=== PATIENT | female | born 1935 | race Two or more races ===

== ENCOUNTER 2016-12-08 13:57 | Inpatient (IN) | payer MEDICARE, MEDICAID ==
[~2016-12-08] VITALS: Ht 165.1 cm; Wt 62.3 kg
[2016-12-08 14:35] LABS: Basophils # (auto) 0 uL; Basophils % (auto) 0.4 % (0.0-2.0); CONDITION Y; Eosinophils # (auto) 0 uL; Hematocrit 35.9 % (36.0-46.0); Lymphocytes # (auto) 1.7 uL; Lymphocytes % (auto) 25.2 % (10.0-50.0); Mean Corpuscular Hemoglobin 31.5 pg (28.0-32.0); Mean Corpuscular Hgb Conc. 33.5 g/dL (32.0-36.0); Mean Platelet Volume 8.9 fL (7.4-10.4); Monocytes # (auto) 0.5 uL; Neutrophils # (auto) 4.5 uL; Neutrophils % (auto) 67.4 % (37.0-80.0); Platelet Count (auto) 238 10^3/uL (140-450); Red Cell Distribution Width 15.5 % (11.6-16.0); White Blood Cell 6.7 10^3/uL (4.4-10.8)
[2016-12-08 14:51] LABS: Albumin 3.3 g/dL (3.4-5.0); BUN/Creatinine Ratio 21.2; Bilirubin, Total 0.8 mg/dL (0.2-1.0); Calcium 8.6 mg/dL (8.5-10.1); Potassium 4.6 mmol/L (3.5-5.1); Total Protein 6.5 g/dL (6.4-8.2)
[2016-12-08] MEDS ORDERED: SODIUM CHLORIDE 0.9% 1,000 ML IVB ONE (15:48)
[2016-12-08 16:10] LABS: INR 1.01 (0.9-1.15); Partial Thromboplastin Time 20.7 sec (22.64-33.71)
[2016-12-08] MEDS ORDERED: SODIUM CHLORIDE 0.9% 1,000 ML IV SCH (16:10)
[2016-12-08 16:12] LABS: Magnesium 2.2 mg/dL (1.6-2.6)
[2016-12-08 16:13] LABS: Urine Bilirubin Negative (Negative); Urine Blood Negative /uL (Negative); Urine Color Yellow (Yellow); Urine Glucose Normal (Normal); Urine Ketone Negative (Negative); Urine Nitrite Negative (Negative); Urine RBC <1 /hpf (0 - 4); Urine Urobilinogen Normal (Negative); Urine pH 5.5 (5.0-8.0)
[2016-12-08] MEDS ORDERED: MORPHINE SULF INJ 2 MG/ML SYRINGE 1ML IV PRN (16:15)
[2016-12-08] MEDS ORDERED: DEXTROSE (50%) 50ML SYRG IV PRN (16:15)
[2016-12-08] MEDS ORDERED: ACETAMINOPHEN 325 MG TAB PO PRN (16:15)
[2016-12-08] MEDS ORDERED: NITROGLYCERIN 0.4 MG SL TAB SL PRN (16:15)
[2016-12-08] MEDS: ASPirin 325 MG TAB PO SCH (16:42)
[2016-12-08] MEDS: ACCU-CHEK COMFORT CURVE STRIP VI SCH ×2 (16:55→22:11)
[2016-12-08] MEDS: InsuLIN REG 1unit/0.01ml Soln (100units/ml) SC SCH ×2 (16:56→22:00)
[2016-12-08] MEDS ORDERED: CARV3.1240 PO (17:40)
[2016-12-08] MEDS ORDERED: METF-372 PO (17:40)
[2016-12-08] MEDS ORDERED: FURO40TA4 PO (17:40)
[2016-12-08] MEDS ORDERED: ALPR0.254 PO (17:40)
[2016-12-08] MEDS ORDERED: TRAM50TA2 PO (17:40)
[2016-12-08] MEDS ORDERED: CLOP75TA41 PO (17:40)
[2016-12-08] MEDS ORDERED: SACU1TAB PO (17:40)
[2016-12-08] MEDS ORDERED: POTA10TA34 PO (17:40)
[2016-12-08] MEDS ORDERED: ATOR40TA52 PO (17:40)
[2016-12-08] MEDS ORDERED: ACETTAB85 PO (17:40)
[2016-12-08] MEDS ORDERED: CHOL20007 OR (17:40)
[2016-12-08 18:44] LABS: Lactic Acid w/Reflex 3.6 mmol/L (0.4-2.0)
[2016-12-08 19:14] LABS: REFLEX LACTIC ACID YES OR NO YES
[2016-12-08] MEDS ORDERED: POTASSIUM CHL 20 Meq TABLET PO ONE (20:15)
[2016-12-08] MEDS ORDERED: FUROSEMIDE 40 MG/4 ML VIAL IV ONE (20:15)
[2016-12-08 21:30] VITALS: BP 105/57
[2016-12-08] MEDS: ALPRAZolam 0.25 MG TAB PO SCH (22:11)
[2016-12-08] MEDS: ENOXAPARIN SOD 80 MG/0.8ML SYRINGE SC SCH (22:12)
[2016-12-09 05:00] VITALS: BP 111/65
[2016-12-09 06:03] LABS: Basophils # (auto) 0 uL; Basophils % (auto) 0.2 % (0.0-2.0); CONDITION Y; Eosinophils # (auto) 0 uL; Hematocrit 37.6 % (36.0-46.0); Hemoglobin 12.6 g/dL (12.2-16.2); Lymphocytes # (auto) 1.4 uL; Lymphocytes % (auto) 24.8 % (10.0-50.0); Mean Corpuscular Hemoglobin 31.7 pg (28.0-32.0); Mean Corpuscular Hgb Conc. 33.4 g/dL (32.0-36.0); Mean Corpuscular Volume 94.7 fL (80.0-100.0); Mean Platelet Volume 9.1 fL (7.4-10.4); Monocytes # (auto) 0.4 uL; Monocytes % (auto) 7.2 % (0.0-12.0); Neutrophils # (auto) 3.9 uL; Neutrophils % (auto) 67.8 % (37.0-80.0); Platelet Count (auto) 237 10^3/uL (140-450); Red Cell Distribution Width 15.4 % (11.6-16.0); White Blood Cell 5.7 10^3/uL (4.4-10.8)
[2016-12-09] MEDS: InsuLIN REG 1unit/0.01ml Soln (100units/ml) SC SCH ×4 (06:29→21:53)
[2016-12-09] MEDS: ACCU-CHEK COMFORT CURVE STRIP VI SCH ×4 (06:29→21:53)
[2016-12-09 06:40] LABS: Albumin 3.3 g/dL (3.4-5.0); BUN/Creatinine Ratio 24.6; Bilirubin, Total 0.9 mg/dL (0.2-1.0); Calcium 8.7 mg/dL (8.5-10.1); Potassium 4.1 mmol/L (3.5-5.1); Total Protein 6.6 g/dL (6.4-8.2)
[2016-12-09 09:00] VITALS: BP 103/61
[2016-12-09] MEDS: CARVEDILOL 3.125 MG TAB PO SCH ×2 (10:00→21:52)
[2016-12-09] MEDS ORDERED: CLOPIDOGREL BISULFATE 75 MG TAB PO SCH (10:00)
[2016-12-09] MEDS: ENOXAPARIN SOD 80 MG/0.8ML SYRINGE SC SCH (10:48)
[2016-12-09] MEDS: ASPirin 325 MG TAB PO SCH (10:48)
[2016-12-09] MEDS ORDERED: ADENOSINE 56 MG in GIVE UN-DILUTED 0 ML IV ONE (13:00)
[2016-12-09] MEDS ORDERED: ADENOSINE 49 MG in GIVE UN-DILUTED 0 ML IV ONE (13:30)
[2016-12-09 17:24] VITALS: BP 122/95
[2016-12-09] MEDS: ALPRAZolam 0.25 MG TAB PO SCH (21:53)
[2016-12-09] MEDS ORDERED: ATORVASTATIN 20 MG TAB PO SCH (22:00)
[2016-12-09 22:14] VITALS: BP 120/67
[2016-12-10 05:12] VITALS: BP 94/56
[2016-12-10] MEDS: ACCU-CHEK COMFORT CURVE STRIP VI SCH ×2 (06:20→11:30)
[2016-12-10] MEDS: InsuLIN REG 1unit/0.01ml Soln (100units/ml) SC SCH ×2 (06:20→11:30)
[2016-12-10 08:55] VITALS: BP 113/64
[2016-12-10 09:00] VITALS: BP 113/64
[2016-12-10] MEDS: ASPirin 325 MG TAB PO SCH (10:16)
[2016-12-10] MEDS: CARVEDILOL 3.125 MG TAB PO SCH (10:18)
[2016-12-10 13:00] VITALS: BP 96/57
[2016-12-10 13:48] VITALS: BP 96/57
== END 2016-12-10 15:45 | disposition home or self-care (01) | DRG 280 ==
LOC: EDBD 13:57 → ER 13:57 → TELE 13:58 → TELE-E-ADS 17:24 → TELE-CENTR 18:55
PROVIDERS: ADMIT Internal Medicine; ATTEND Internal Medicine
DX: I13.0 Hypertensive heart and chronic kidney disease with heart failure and stage 1 through stage 4 chronic kidney disease, or unspecified chronic kidney disease (principal); G92 Toxic encephalopathy; I21.4 Non-ST elevation (NSTEMI) myocardial infarction; E43 Unspecified severe protein-calorie malnutrition; I50.23 Acute on chronic systolic (congestive) heart failure; I42.9 Cardiomyopathy, unspecified; N18.3 Chronic kidney disease, stage 3 (moderate); G89.29 Other chronic pain; F32.9 Major depressive disorder, single episode, unspecified; M54.5 Low back pain; E11.22 Type 2 diabetes mellitus with diabetic chronic kidney disease; D64.9 Anemia, unspecified; F41.9 Anxiety disorder, unspecified; I25.10 Atherosclerotic heart disease of native coronary artery without angina pectoris; E03.9 Hypothyroidism, unspecified; E78.00 Pure hypercholesterolemia, unspecified; E11.21 Type 2 diabetes mellitus with diabetic nephropathy; T42.4X5A Adverse effect of benzodiazepines, initial encounter; Y92.89 Other specified places as the place of occurrence of the external cause; Z79.02 Long term (current) use of antithrombotics/antiplatelets; Z79.82 Long term (current) use of aspirin; Z88.0 Allergy status to penicillin; Z68.22 Body mass index [BMI] 22.0-22.9, adult
CPT/HCPCS: 36415; 51702; 70450; 71010; 78452; 80053; 80320; 81001; 82962; 83605; 83735; 84484; 85025; 85610; 85730; 87040; 87086; 93005; 93017; 93306; 94761; 96361; 96365; J0153; J1815

== ENCOUNTER 2017-05-04 21:35 | Inpatient (IN) | payer MEDICARE, MEDICAID ==
[~2017-05-04] VITALS: Ht 165.1 cm; Wt 68.5 kg
[~2017-05-04 21:35] MED LIST: ACETTAB85 PO; ATOR40TA52 PO; CHOL20007 OR; CLOP75TA41 PO; FURO40TA4 PO; METF-372 PO; POTA10TA34 PO; SACU1TAB PO
[2017-05-04 22:48] LABS: Basophils # (auto) 0 uL; Basophils % (auto) 0.5 % (0.0-2.0); Eosinophils # (auto) 0 uL; Hematocrit 33.7 % (36.0-46.0); Hemoglobin 11.4 g/dL (12.2-16.2); Lymphocytes # (auto) 1.2 uL; Lymphocytes % (auto) 14.8 % (10.0-50.0); Mean Corpuscular Hemoglobin 32.5 pg (28.0-32.0); Mean Corpuscular Volume 95.6 fL (80.0-100.0); Monocytes # (auto) 0.5 uL; Monocytes % (auto) 5.9 % (0.0-12.0); Neutrophils # (auto) 6.3 uL; Neutrophils % (auto) 78.8 % (37.0-80.0); Platelet Count (auto) 166 10^3/uL (140-450); Red Blood Cells 3.52 10^6/uL (4.0-5.20); Red Cell Distribution Width 13.3 % (11.8-14.3)
[2017-05-04 23:12] LABS: Albumin 3.2 g/dL (3.4-5.0); BUN/Creatinine Ratio 23.6; Calcium 8.6 mg/dL (8.5-10.1); Potassium 4.1 mmol/L (3.5-5.1)
[2017-05-04 23:15] LABS: Bilirubin, Total 0.7 mg/dL (0.2-1.0); Total Protein 6.6 g/dL (6.4-8.2)
[2017-05-05] MEDS ORDERED: ASPirin 325 MG TAB PO ONE (02:00)
[2017-05-05] MEDS ORDERED: MORPHINE SULFATE 10 MG/ML INJ 1ML SDV IV ONE (02:00)
[2017-05-05 03:03] LABS: INR 0.97 (0.9-1.15); Partial Thromboplastin Time 23.2 sec (22.64-33.71); Prothrombin Time 10.6 sec (9.37-12.3)
[2017-05-05] MEDS ORDERED: IOHEXOL 350 MG/ML 100ML IJ ONE (06:34)
[2017-05-05] MEDS ORDERED: SODIUM CHLORIDE 0.9% 1,000 ML IV SCH (06:36)
[2017-05-05] MEDS ORDERED: TEMAZEPAM 15 MG CAP PO PRN (06:45)
[2017-05-05] MEDS ORDERED: ONDANSETRON HCL 4 MG/2 ML VIAL IV PRN (06:45)
[2017-05-05] MEDS ORDERED: ENOXAPARIN SOD 100 MG/1 ML SYRINGE SC ONE (06:45)
[2017-05-05] MEDS ORDERED: MORPHINE SULFATE 10 MG/ML INJ 1ML SDV IV PRN (06:45)
[2017-05-05] MEDS ORDERED: NITROGLYCERIN 0.4 MG SL TAB SL PRN (06:45)
[2017-05-05] MEDS ORDERED: ACETAMINOPHEN 325 MG TAB PO PRN (06:45)
[2017-05-05] MEDS ORDERED: DEXTROSE (50%) 50ML SYRG IV PRN (06:45)
[2017-05-05] MEDS: METOPROLOL TARTRATE 25 MG TAB PO SCH ×3 (09:05→22:49)
[2017-05-05] MEDS: HYDROcodone-ACET 5/325MG TAB PO PRN ×3 (09:06→21:22)
[2017-05-05] MEDS: FAMOTIDINE 20 MG TAB PO SCH ×3 (09:06→22:49)
[2017-05-05] MEDS: FUROSEMIDE 20 MG TAB PO SCH (09:07)
[2017-05-05] MEDS: ENOXAPARIN SOD 40 MG/0.4 ML SYRINGE SC SCH (09:07)
[2017-05-05 09:30] VITALS: BP 113/71
[2017-05-05] MEDS ORDERED: ASPirin 81 mg TAB PO SCH (10:00)
[2017-05-05] MEDS: InsuLIN REG 1unit/0.01ml Soln (100units/ml) SC SCH ×2 (11:50→17:38)
[2017-05-05] MEDS: ACCU-CHEK COMFORT CURVE STRIP VI SCH ×2 (11:53→17:38)
[2017-05-05 13:00] VITALS: BP 82/51
[2017-05-05 17:00] VITALS: BP 83/51
[2017-05-05] MEDS: ATORVASTATIN 20 MG TAB PO SCH ×2 (21:22→22:49)
[2017-05-05 22:00] VITALS: BP 129/78
[2017-05-06] MEDS: InsuLIN REG 1unit/0.01ml Soln (100units/ml) SC SCH ×3 (00:01→11:37)
[2017-05-06] MEDS: ACCU-CHEK COMFORT CURVE STRIP VI SCH ×3 (00:02→11:38)
[2017-05-06] MEDS: HYDROcodone-ACET 5/325MG TAB PO PRN ×2 (00:03→04:07)
[2017-05-06 05:44] VITALS: BP 99/53
[2017-05-06 06:32] LABS: Basophils # (auto) 0 uL; Basophils % (auto) 0.8 % (0.0-2.0); Eosinophils # (auto) 0 uL; Hematocrit 29.7 % (36.0-46.0); Hemoglobin 10.4 g/dL (12.2-16.2); Lymphocytes # (auto) 1.8 uL; Lymphocytes % (auto) 30.7 % (10.0-50.0); Mean Corpuscular Hemoglobin 33.7 pg (28.0-32.0); Mean Corpuscular Hgb Conc. 35.1 g/dL (32.0-36.0); Mean Corpuscular Volume 96.2 fL (80.0-100.0); Monocytes # (auto) 0.5 uL; Monocytes % (auto) 8.6 % (0.0-12.0); Neutrophils # (auto) 3.5 uL; Neutrophils % (auto) 59.9 % (37.0-80.0); Platelet Count (auto) 154 10^3/uL (140-450); Red Blood Cells 3.09 10^6/uL (4.0-5.20); Red Cell Distribution Width 13.4 % (11.8-14.3); White Blood Cell 5.9 10^3/uL (4.4-10.8)
[2017-05-06 07:08] LABS: Albumin 2.9 g/dL (3.4-5.0); BUN/Creatinine Ratio 19.8; Bilirubin, Total 0.7 mg/dL (0.2-1.0); Calcium 7.7 mg/dL (8.5-10.1); Potassium 3.8 mmol/L (3.5-5.1); Total Protein 6.1 g/dL (6.4-8.2)
[2017-05-06 09:00] VITALS: BP 113/71
[2017-05-06] MEDS: ENOXAPARIN SOD 40 MG/0.4 ML SYRINGE SC SCH ×2 (09:52→10:00)
[2017-05-06] MEDS: FUROSEMIDE 20 MG TAB PO SCH ×2 (09:52→10:00)
[2017-05-06] MEDS: ASPirin 81 mg TAB PO SCH ×2 (09:53→10:00)
[2017-05-06] MEDS: METOPROLOL TARTRATE 25 MG TAB PO SCH ×2 (09:53→10:00)
[2017-05-06] MEDS: FAMOTIDINE 20 MG TAB PO SCH ×2 (09:53→10:00)
[2017-05-06 10:24] LABS: Urine WBC None Seen /hpf (0 - 5)
[2017-05-06] MEDS ORDERED: LORazepam 2MG/ML-1ML VIAL IV ONE (11:30)
[2017-05-06 12:06] LABS: Urine Bacteria NONE SEEN /hpf (None Seen); Urine Blood 1+ /uL (Negative); Urine Hyaline Cast FEW /lpf (0 - 2); Urine Specific Gravity 1.028 (1.001-1.035)
[2017-05-06 13:27] VITALS: BP 115/87
[2017-05-06 15:00] VITALS: BP 113/70
== END 2017-05-06 16:40 | disposition home or self-care (01) | DRG 637 ==
LOC: EDBD 21:35 → ER 21:41 → TELE 21:42 → EDUNIT# 21:42 → TELE-WESTW 05-05 07:46
PROVIDERS: ADMIT Nurse Practitioner; ATTEND Internal Medicine
DX: E11.65 Type 2 diabetes mellitus with hyperglycemia (principal); N17.0 Acute kidney failure with tubular necrosis; I42.0 Dilated cardiomyopathy; E87.1 Hypo-osmolality and hyponatremia; I13.0 Hypertensive heart and chronic kidney disease with heart failure and stage 1 through stage 4 chronic kidney disease, or unspecified chronic kidney disease; I50.9 Heart failure, unspecified; W18.39XA Other fall on same level, initial encounter; R07.89 Other chest pain; I25.10 Atherosclerotic heart disease of native coronary artery without angina pectoris; E11.21 Type 2 diabetes mellitus with diabetic nephropathy; E03.9 Hypothyroidism, unspecified; F03.90 Unspecified dementia, unspecified severity, without behavioral disturbance, psychotic disturbance, mood disturbance, and anxiety; N18.9 Chronic kidney disease, unspecified; R79.1 Abnormal coagulation profile; I34.0 Nonrheumatic mitral (valve) insufficiency; I44.7 Left bundle-branch block, unspecified; Y93.89 Activity, other specified; Z88.0 Allergy status to penicillin; Z82.49 Family history of ischemic heart disease and other diseases of the circulatory system; Z83.3 Family history of diabetes mellitus; Y92.89 Other specified places as the place of occurrence of the external cause; Y99.8 Other external cause status
CPT/HCPCS: 36415; 70450; 71045; 71275; 73000; 80053; 80061; 81001; 82962; 83036; 83735; 83880; 84443; 84484; 85025; 85379; 85610; 85730; 93005; 93306; 94761; 96361; 96374; 97116; 97163; 97530; J1815; J2405

== ENCOUNTER 2017-05-15 04:25 | Inpatient (IN) | payer MEDICARE, MEDICAID ==
[~2017-05-15] VITALS: Ht 157.5 cm; Wt 63.5 kg
[2017-05-15 05:24] LABS: Basophils # (auto) 0 uL; Basophils % (auto) 0.3 % (0.0-2.0); Eosinophils # (auto) 0 uL; Hemoglobin 9.9 g/dL (12.2-16.2); Lymphocytes # (auto) 0.7 uL; Lymphocytes % (auto) 10.6 % (10.0-50.0); Mean Corpuscular Hemoglobin 31.9 pg (28.0-32.0); Mean Corpuscular Hgb Conc. 34.2 g/dL (32.0-36.0); Mean Corpuscular Volume 93.2 fL (80.0-100.0); Monocytes # (auto) 0.4 uL; Monocytes % (auto) 5.4 % (0.0-12.0); Neutrophils # (auto) 5.5 uL; Neutrophils % (auto) 83.7 % (37.0-80.0); Nucleated Red Blood Cells % 0.1 %; Platelet Count (auto) 194 10^3/uL (140-450); Red Blood Cells 3.11 10^6/uL (4.0-5.20); Red Cell Distribution Width 13.5 % (11.8-14.3); White Blood Cell 6.6 10^3/uL (4.4-10.8)
[2017-05-15 05:50] LABS: Albumin 3.1 g/dL (3.4-5.0); BUN/Creatinine Ratio 18.2; Bilirubin, Total 0.8 mg/dL (0.2-1.0); Calcium 8.3 mg/dL (8.5-10.1); Potassium 4.1 mmol/L (3.5-5.1); Total Protein 6.3 g/dL (6.4-8.2)
[2017-05-15] MEDS ORDERED: SPIRONOLACTONE 25 MG TAB PO ONE (07:45)
[2017-05-15] MEDS ORDERED: FUROSEMIDE 40 MG/4 ML VIAL IV ONE (07:45)
[2017-05-15 10:10] LABS: Urine Bacteria NONE SEEN /hpf (None Seen); Urine Blood Negative /uL (Negative); Urine Mucus FEW (None Seen); Urine Specific Gravity 1.012 (1.001-1.035); Urine WBC 1 /hpf (0 - 5)
[2017-05-15] MEDS ORDERED: MORPHINE SULF INJ 2 MG/ML SYRINGE 1ML IV ONE (10:30)
[2017-05-15] MEDS ORDERED: ACETAMINOPHEN 500 MG TAB PO PRN (12:15)
[2017-05-15] MEDS ORDERED: NITROGLYCERIN 0.4 MG SL TAB SL PRN (12:15)
[2017-05-15] MEDS ORDERED: PROMETHAZINE HCL 25 MG/ML 1ML IV PRN (12:15)
[2017-05-15] MEDS ORDERED: DEXTROSE (50%) 50ML SYRG IV PRN (12:15)
[2017-05-15] MEDS ORDERED: MORPHINE SULF INJ 2 MG/ML SYRINGE 1ML IV PRN (12:15)
[2017-05-15] MEDS ORDERED: MORPHINE SULFATE 10 MG/ML INJ 1ML SDV IV PRN (12:15)
[2017-05-15] MEDS: ASPirin 81 mg TAB PO SCH (13:30)
[2017-05-15] MEDS: POTASSIUM CHL 20 Meq TABLET PO SCH (13:30)
[2017-05-15] MEDS: CARVEDILOL 3.125 MG TAB PO SCH ×2 (13:31→21:59)
[2017-05-15] MEDS: PANTOPRAZOLE 40 MG TAB PO SCH (13:31)
[2017-05-15] MEDS: CLOPIDOGREL BISULFATE 75 MG TAB PO SCH (13:31)
[2017-05-15] MEDS: CHOLECALCIFEROL (VITD3) 1,000 UNIT TAB PO SCH (13:33)
[2017-05-15] MEDS: ENOXAPARIN SOD 40 MG/0.4 ML SYRINGE SC SCH (13:35)
[2017-05-15] MEDS: InsuLIN REG 1unit/0.01ml Soln (100units/ml) SC SCH ×2 (16:00→19:42)
[2017-05-15] MEDS: ACCU-CHEK COMFORT CURVE STRIP VI SCH ×2 (16:12→19:42)
[2017-05-15] MEDS: LORazepam 0.5 MG TAB PO PRN ×2 (16:32→23:58)
[2017-05-15] MEDS ORDERED: IOHEXOL 350 MG/ML 100ML IJ ONE (16:49)
[2017-05-15] MEDS: SPIRONOLACTONE 25 MG TAB PO SCH (17:56)
[2017-05-15] MEDS: ATORVASTATIN 20 MG TAB PO SCH (21:59)
[2017-05-15] MEDS: TEMAZEPAM 15 MG CAP PO PRN (23:58)
[2017-05-16] MEDS: ACCU-CHEK COMFORT CURVE STRIP VI SCH ×6 (00:09→20:08)
[2017-05-16] MEDS: InsuLIN REG 1unit/0.01ml Soln (100units/ml) SC SCH ×6 (04:00→20:00)
[2017-05-16] MEDS ORDERED: LORazepam 2MG/ML-1ML VIAL IV ONE (05:00)
[2017-05-16 05:38] LABS: Basophils # (auto) 0 uL; Basophils % (auto) 0.8 % (0.0-2.0); Eosinophils # (auto) 0 uL; Hematocrit 31.9 % (36.0-46.0); Hemoglobin 10.8 g/dL (12.2-16.2); Lymphocytes # (auto) 1.9 uL; Lymphocytes % (auto) 29.9 % (10.0-50.0); Mean Corpuscular Volume 94.2 fL (80.0-100.0); Monocytes # (auto) 0.6 uL; Monocytes % (auto) 9.9 % (0.0-12.0); Neutrophils # (auto) 3.8 uL; Neutrophils % (auto) 59.4 % (37.0-80.0); Nucleated Red Blood Cells % 0.1 %; Platelet Count (auto) 220 10^3/uL (140-450); Red Blood Cells 3.38 10^6/uL (4.0-5.20); Red Cell Distribution Width 13.7 % (11.8-14.3); White Blood Cell 6.3 10^3/uL (4.4-10.8)
[2017-05-16 06:01] LABS: Albumin 3.1 g/dL (3.4-5.0); BUN/Creatinine Ratio 21.3; Bilirubin, Total 1.1 mg/dL (0.2-1.0); Calcium 8.5 mg/dL (8.5-10.1); Potassium 4.5 mmol/L (3.5-5.1); Total Protein 6.4 g/dL (6.4-8.2)
[2017-05-16] MEDS ORDERED: ENOXAPARIN SOD 40 MG/0.4 ML SYRINGE SC SCH (10:00)
[2017-05-16] MEDS: NITROGLYCERIN 0.2MG/HR TOPICAL PATCH TD SCH (10:00)
[2017-05-16] MEDS: CARVEDILOL 3.125 MG TAB PO SCH ×2 (10:00→22:00)
[2017-05-16] MEDS: CHOLECALCIFEROL (VITD3) 1,000 UNIT TAB PO SCH (10:00)
[2017-05-16] MEDS: PANTOPRAZOLE 40 MG TAB PO SCH (10:00)
[2017-05-16] MEDS: POTASSIUM CHL 20 Meq TABLET PO SCH (10:00)
[2017-05-16] MEDS: SPIRONOLACTONE 25 MG TAB PO SCH (10:00)
[2017-05-16] MEDS ORDERED: POTASSIUM CHLORIDE 10 MEQ PO SCH (10:00)
[2017-05-16] MEDS ORDERED: ENTRESTO PO SCH (10:00)
[2017-05-16] MEDS: CLOPIDOGREL BISULFATE 75 MG TAB PO SCH (10:00)
[2017-05-16] MEDS: ASPirin 81 mg TAB PO SCH (10:01)
[2017-05-16] MEDS: ENOXAPARIN SOD 40 MG/0.4 ML SYRINGE SC SCH (10:02)
[2017-05-16] MEDS: FUROSEMIDE 40 MG/4 ML VIAL IV SCH (10:45)
[2017-05-16] MEDS: Boost Glucose Control 8 Ounces PO SCH (18:30)
[2017-05-16] MEDS: ATORVASTATIN 20 MG TAB PO SCH (22:00)
[2017-05-16 23:30] VITALS: BP 112/76
[2017-05-17] MEDS: ACCU-CHEK COMFORT CURVE STRIP VI SCH ×6 (00:07→22:36)
[2017-05-17] MEDS: InsuLIN REG 1unit/0.01ml Soln (100units/ml) SC SCH ×6 (03:56→22:35)
[2017-05-17 04:00] VITALS: BP 115/61
[2017-05-17 06:00] LABS: Basophils # (auto) 0.1 uL; Basophils % (auto) 1.1 % (0.0-2.0); Eosinophils # (auto) 0 uL; Hematocrit 31.6 % (36.0-46.0); Hemoglobin 10.8 g/dL (12.2-16.2); Lymphocytes # (auto) 1.3 uL; Lymphocytes % (auto) 24.9 % (10.0-50.0); Mean Corpuscular Hemoglobin 31.7 pg (28.0-32.0); Mean Corpuscular Volume 93.1 fL (80.0-100.0); Monocytes # (auto) 0.5 uL; Monocytes % (auto) 9.8 % (0.0-12.0); Neutrophils # (auto) 3.4 uL; Neutrophils % (auto) 64.2 % (37.0-80.0); Nucleated Red Blood Cells % 0.1 %; Platelet Count (auto) 234 10^3/uL (140-450); Red Blood Cells 3.39 10^6/uL (4.0-5.20); Red Cell Distribution Width 13.8 % (11.8-14.3); White Blood Cell 5.3 10^3/uL (4.4-10.8)
[2017-05-17 06:15] LABS: Albumin 3.1 g/dL (3.4-5.0); BUN/Creatinine Ratio 22.5; Bilirubin, Total 1.3 mg/dL (0.2-1.0); Calcium 8.3 mg/dL (8.5-10.1); Total Protein 6.5 g/dL (6.4-8.2)
[2017-05-17 08:00] VITALS: BP 114/36
[2017-05-17] MEDS: Boost Glucose Control 8 Ounces PO SCH ×3 (08:24→18:00)
[2017-05-17 09:24] LABS: Folate (Folic Acid) 12.52 ng/mL (5.38-24)
[2017-05-17] MEDS: CLOPIDOGREL BISULFATE 75 MG TAB PO SCH (10:00)
[2017-05-17] MEDS: FUROSEMIDE 40 MG/4 ML VIAL IV SCH (10:00)
[2017-05-17] MEDS: ENOXAPARIN SOD 40 MG/0.4 ML SYRINGE SC SCH (10:00)
[2017-05-17] MEDS: CARVEDILOL 3.125 MG TAB PO SCH ×2 (10:00→22:36)
[2017-05-17] MEDS: POTASSIUM CHL 20 Meq TABLET PO SCH (10:00)
[2017-05-17] MEDS: NITROGLYCERIN 0.2MG/HR TOPICAL PATCH TD SCH (10:00)
[2017-05-17] MEDS: ASPirin 81 mg TAB PO SCH (10:00)
[2017-05-17] MEDS: PANTOPRAZOLE 40 MG TAB PO SCH (10:00)
[2017-05-17] MEDS: SPIRONOLACTONE 25 MG TAB PO SCH (10:00)
[2017-05-17] MEDS ORDERED: APIXABAN 5 MG TAB PO ONE (11:15)
[2017-05-17] MEDS ORDERED: CITALOPRAM HYDROBR 20 MG TAB PO ONE (11:15)
[2017-05-17 11:50] VITALS: BP 129/38
[2017-05-17] MEDS ORDERED: SODIUM CHLORIDE 0.9% 1,000 ML IV SCH (15:22)
[2017-05-17] MEDS ORDERED: diphenhdrAMINE HCL 50 MG/1 ML VL IV ONE (15:30)
[2017-05-17 15:50] VITALS: BP 106/31
[2017-05-17 16:13] LABS: INR 1.26 (0.9-1.15); Partial Thromboplastin Time 26.5 sec (22.64-33.71); Prothrombin Time 13.8 sec (9.37-12.3)
[2017-05-17 22:00] VITALS: BP 105/64
[2017-05-17] MEDS ORDERED: APIXABAN 5 MG TAB PO SCH (22:00)
[2017-05-17] MEDS: ATORVASTATIN 20 MG TAB PO SCH (22:36)
[2017-05-18 05:36] VITALS: BP 119/71
[2017-05-18] MEDS: ACCU-CHEK COMFORT CURVE STRIP VI SCH ×4 (06:42→22:28)
[2017-05-18] MEDS: InsuLIN REG 1unit/0.01ml Soln (100units/ml) SC SCH ×4 (06:42→22:31)
[2017-05-18] MEDS ORDERED: LIDOCAINE 2%HCL (LOCAL ANESTH.) INJ 20ML MDV ONE (07:28)
[2017-05-18] MEDS ORDERED: IOHEXOL 350 MG/ML 100ML IJ ONE (07:28)
[2017-05-18 07:34] LABS: Basophils # (auto) 0 uL; Basophils % (auto) 0.9 % (0.0-2.0); Eosinophils # (auto) 0 uL; Hematocrit 29.9 % (36.0-46.0); Lymphocytes # (auto) 1.1 uL; Lymphocytes % (auto) 20.1 % (10.0-50.0); Mean Corpuscular Hemoglobin 31.5 pg (28.0-32.0); Mean Corpuscular Hgb Conc. 33.4 g/dL (32.0-36.0); Mean Corpuscular Volume 94.4 fL (80.0-100.0); Monocytes # (auto) 0.6 uL; Monocytes % (auto) 10.6 % (0.0-12.0); Neutrophils # (auto) 3.6 uL; Neutrophils % (auto) 68.4 % (37.0-80.0); Platelet Count (auto) 236 10^3/uL (140-450); Red Blood Cells 3.17 10^6/uL (4.0-5.20); Red Cell Distribution Width 13.4 % (11.8-14.3); White Blood Cell 5.2 10^3/uL (4.4-10.8)
[2017-05-18 07:46] LABS: Albumin 2.9 g/dL (3.4-5.0); BUN/Creatinine Ratio 22.8; Bilirubin, Total 1.1 mg/dL (0.2-1.0); Potassium 3.6 mmol/L (3.5-5.1); Total Protein 6.1 g/dL (6.4-8.2)
[2017-05-18] MEDS: Boost Glucose Control 8 Ounces PO SCH ×3 (08:00→18:05)
[2017-05-18] MEDS ORDERED: fentaNYL CITRATE 100 MCG/2 ML VL ONE (09:10)
[2017-05-18] MEDS ORDERED: ANGIOMAX 250 MG VIAL IV ONE (09:10)
[2017-05-18] MEDS ORDERED: SODIUM CHL 0.9% 0 ML ONE (09:11)
[2017-05-18] MEDS ORDERED: MIDAZOLAM HCL 1MG/1ML-2 ML VIAL ONE (09:11)
[2017-05-18] MEDS ORDERED: diphenhdrAMINE HCL 50 MG/1 ML VL ONE (09:57)
[2017-05-18] MEDS: FUROSEMIDE 40 MG/4 ML VIAL IV SCH (10:00)
[2017-05-18] MEDS: CLOPIDOGREL BISULFATE 75 MG TAB PO SCH (10:00)
[2017-05-18] MEDS: SPIRONOLACTONE 25 MG TAB PO SCH (10:00)
[2017-05-18] MEDS: POTASSIUM CHL 20 Meq TABLET PO SCH (10:00)
[2017-05-18] MEDS: CHOLECALCIFEROL (VITD3) 1,000 UNIT TAB PO SCH (10:00)
[2017-05-18] MEDS: CARVEDILOL 3.125 MG TAB PO SCH ×2 (10:00→22:29)
[2017-05-18] MEDS: ASPirin 81 mg TAB PO SCH (10:00)
[2017-05-18] MEDS: PANTOPRAZOLE 40 MG TAB PO SCH (10:00)
[2017-05-18] MEDS: CITALOPRAM HYDROBR 20 MG TAB PO SCH (10:00)
[2017-05-18] MEDS: NITROGLYCERIN 0.2MG/HR TOPICAL PATCH TD SCH (10:00)
[2017-05-18] MEDS ORDERED: HALOPERIDOL LACTATE 5 MG/ML INJ VIAL ONE (10:02)
[2017-05-18 13:00] VITALS: BP 130/75
[2017-05-18 17:00] VITALS: BP 120/81
[2017-05-18] MEDS: HYDROcodone-ACET 5/325MG TAB PO PRN (19:45)
[2017-05-18 22:00] VITALS: BP 121/78
[2017-05-18] MEDS: ATORVASTATIN 20 MG TAB PO SCH (22:28)
[2017-05-18] MEDS: TEMAZEPAM 15 MG CAP PO PRN (22:49)
[2017-05-19] MEDS: ACCU-CHEK COMFORT CURVE STRIP VI SCH ×4 (06:24→21:42)
[2017-05-19] MEDS: InsuLIN REG 1unit/0.01ml Soln (100units/ml) SC SCH ×4 (06:24→21:43)
[2017-05-19 06:31] LABS: Basophils # (auto) 0 uL; Basophils % (auto) 0.8 % (0.0-2.0); Eosinophils # (auto) 0 uL; Eosinophils % (auto) 0.1 % (0.0-7.0); Hematocrit 30.6 % (36.0-46.0); Hemoglobin 10.4 g/dL (12.2-16.2); Lymphocytes # (auto) 1.9 uL; Lymphocytes % (auto) 35.8 % (10.0-50.0); Mean Corpuscular Hemoglobin 31.7 pg (28.0-32.0); Mean Corpuscular Hgb Conc. 33.9 g/dL (32.0-36.0); Mean Corpuscular Volume 93.5 fL (80.0-100.0); Monocytes # (auto) 0.5 uL; Monocytes % (auto) 9.7 % (0.0-12.0); Neutrophils # (auto) 2.9 uL; Neutrophils % (auto) 53.6 % (37.0-80.0); Nucleated Red Blood Cells % 0.1 %; Platelet Count (auto) 235 10^3/uL (140-450); Red Blood Cells 3.27 10^6/uL (4.0-5.20); Red Cell Distribution Width 13.6 % (11.8-14.3); White Blood Cell 5.3 10^3/uL (4.4-10.8)
[2017-05-19 06:50] LABS: Potassium 3.4 mmol/L (3.5-5.1)
[2017-05-19 06:51] LABS: Albumin 2.9 g/dL (3.4-5.0); BUN/Creatinine Ratio 22.9; Bilirubin, Total 1.1 mg/dL (0.2-1.0); Calcium 8.1 mg/dL (8.5-10.1); Total Protein 6.2 g/dL (6.4-8.2)
[2017-05-19 09:00] VITALS: BP 109/75
[2017-05-19] MEDS: Boost Glucose Control 8 Ounces PO SCH ×3 (09:58→18:26)
[2017-05-19] MEDS: FUROSEMIDE 40 MG/4 ML VIAL IV SCH (09:59)
[2017-05-19] MEDS ORDERED: APIXABAN 5 MG TAB PO SCH (10:00)
[2017-05-19] MEDS ORDERED: ENOXAPARIN SOD 40 MG/0.4 ML SYRINGE SC ONE (10:15)
[2017-05-19] MEDS: PANTOPRAZOLE 40 MG TAB PO SCH (11:28)
[2017-05-19] MEDS: CITALOPRAM HYDROBR 20 MG TAB PO SCH (11:28)
[2017-05-19] MEDS: SPIRONOLACTONE 25 MG TAB PO SCH (11:29)
[2017-05-19] MEDS: HYDROcodone-ACET 5/325MG TAB PO PRN ×2 (11:29→21:10)
[2017-05-19] MEDS: NITROGLYCERIN 0.2MG/HR TOPICAL PATCH TD SCH (11:33)
[2017-05-19] MEDS: POTASSIUM CHL 20 Meq TABLET PO SCH (11:34)
[2017-05-19] MEDS: CARVEDILOL 3.125 MG TAB PO SCH ×2 (11:35→21:42)
[2017-05-19] MEDS: CHOLECALCIFEROL (VITD3) 1,000 UNIT TAB PO SCH (11:36)
[2017-05-19 17:00] VITALS: BP 105/69
[2017-05-19] MEDS ORDERED: MORPHINE SULFATE 4 MG/ML SYR/VIAL IV PRN ×2 (20:00)
[2017-05-19] MEDS: ATORVASTATIN 20 MG TAB PO SCH (21:44)
[2017-05-19 22:04] VITALS: BP 94/64
[2017-05-20 05:04] VITALS: BP 105/67
[2017-05-20] MEDS: ACCU-CHEK COMFORT CURVE STRIP VI SCH ×4 (06:36→22:23)
[2017-05-20] MEDS: InsuLIN REG 1unit/0.01ml Soln (100units/ml) SC SCH ×4 (06:46→22:42)
[2017-05-20 07:09] VITALS: BP 114/81
[2017-05-20] MEDS: Boost Glucose Control 8 Ounces PO SCH ×3 (08:00→18:00)
[2017-05-20 09:00] VITALS: BP 114/75
[2017-05-20] MEDS: PANTOPRAZOLE 40 MG TAB PO SCH (10:00)
[2017-05-20] MEDS: CHOLECALCIFEROL (VITD3) 1,000 UNIT TAB PO SCH (10:00)
[2017-05-20] MEDS: SPIRONOLACTONE 25 MG TAB PO SCH (10:00)
[2017-05-20] MEDS: CITALOPRAM HYDROBR 20 MG TAB PO SCH (10:00)
[2017-05-20] MEDS: NITROGLYCERIN 0.2MG/HR TOPICAL PATCH TD SCH (10:00)
[2017-05-20] MEDS: POTASSIUM CHL 20 Meq TABLET PO SCH (10:00)
[2017-05-20] MEDS: FUROSEMIDE 40 MG/4 ML VIAL IV SCH (10:28)
[2017-05-20] MEDS: CARVEDILOL 3.125 MG TAB PO SCH ×2 (10:29→22:23)
[2017-05-20 13:00] VITALS: BP 108/64
[2017-05-20] MEDS ORDERED: IOHEXOL 350 MG/ML 100ML IJ ONE (15:10)
[2017-05-20] MEDS ORDERED: LIDOCAINE 2%HCL (LOCAL ANESTH.) INJ 20ML MDV ONE (15:10)
[2017-05-20] MEDS ORDERED: VANCOMYCIN HCL 1000 MG VL ONE (16:48)
[2017-05-20] MEDS ORDERED: MIDAZOLAM HCL 1MG/1ML-2 ML VIAL ONE (16:48)
[2017-05-20] MEDS ORDERED: fentaNYL CITRATE 100 MCG/2 ML VL ONE (16:48)
[2017-05-20] MEDS ORDERED: VANCOMYCIN 1GM/250ML 250 ML IV ONE (16:49)
[2017-05-20 18:45] VITALS: BP 99/55
[2017-05-20 22:00] VITALS: BP 111/68
[2017-05-20] MEDS: ATORVASTATIN 20 MG TAB PO SCH (22:23)
[2017-05-21 05:05] VITALS: BP 105/84
[2017-05-21] MEDS: VANCOMYCIN 1GM/250ML 250 ML IV SCH ×2 (05:08→16:11)
[2017-05-21] MEDS: ACCU-CHEK COMFORT CURVE STRIP VI SCH ×4 (06:35→22:08)
[2017-05-21] MEDS: InsuLIN REG 1unit/0.01ml Soln (100units/ml) SC SCH ×4 (06:52→22:09)
[2017-05-21] MEDS: Boost Glucose Control 8 Ounces PO SCH ×3 (08:00→18:02)
[2017-05-21 09:00] VITALS: BP 107/74
[2017-05-21] MEDS: NITROGLYCERIN 0.2MG/HR TOPICAL PATCH TD SCH (10:00)
[2017-05-21] MEDS: SPIRONOLACTONE 25 MG TAB PO SCH (10:26)
[2017-05-21] MEDS: CHOLECALCIFEROL (VITD3) 1,000 UNIT TAB PO SCH (10:26)
[2017-05-21] MEDS: POTASSIUM CHL 20 Meq TABLET PO SCH (10:27)
[2017-05-21] MEDS: PANTOPRAZOLE 40 MG TAB PO SCH (10:27)
[2017-05-21] MEDS: CITALOPRAM HYDROBR 20 MG TAB PO SCH (10:27)
[2017-05-21] MEDS: CARVEDILOL 3.125 MG TAB PO SCH ×2 (10:28→22:00)
[2017-05-21] MEDS: FUROSEMIDE 40 MG/4 ML VIAL IV SCH (10:29)
[2017-05-21 13:00] VITALS: BP 109/68
[2017-05-21 15:08] VITALS: BP 90/60
[2017-05-21 17:00] VITALS: BP 98/63
[2017-05-21] MEDS: LORazepam 0.5 MG TAB PO PRN (18:01)
[2017-05-21] MEDS: HYDROcodone-ACET 5/325MG TAB PO PRN ×2 (18:01→23:50)
[2017-05-21 22:00] VITALS: BP 91/61
[2017-05-21] MEDS: TEMAZEPAM 15 MG CAP PO PRN (22:09)
[2017-05-21] MEDS: ATORVASTATIN 20 MG TAB PO SCH (22:09)
[2017-05-22] MEDS: CARVEDILOL 3.125 MG TAB PO SCH ×2 (01:30→10:24)
[2017-05-22 05:00] VITALS: BP 103/67
[2017-05-22] MEDS: ACCU-CHEK COMFORT CURVE STRIP VI SCH ×2 (06:30→12:07)
[2017-05-22] MEDS: InsuLIN REG 1unit/0.01ml Soln (100units/ml) SC SCH ×2 (07:00→11:30)
[2017-05-22 09:00] VITALS: BP 113/53
[2017-05-22] MEDS: NITROGLYCERIN 0.2MG/HR TOPICAL PATCH TD SCH (10:00)
[2017-05-22] MEDS: FUROSEMIDE 40 MG/4 ML VIAL IV SCH (10:00)
[2017-05-22] MEDS: SPIRONOLACTONE 25 MG TAB PO SCH (10:23)
[2017-05-22] MEDS: CITALOPRAM HYDROBR 20 MG TAB PO SCH (10:23)
[2017-05-22] MEDS: Boost Glucose Control 8 Ounces PO SCH ×2 (10:23→12:07)
[2017-05-22] MEDS: POTASSIUM CHL 20 Meq TABLET PO SCH (10:24)
[2017-05-22] MEDS: PANTOPRAZOLE 40 MG TAB PO SCH (10:24)
[2017-05-22] MEDS: CHOLECALCIFEROL (VITD3) 1,000 UNIT TAB PO SCH (10:25)
[2017-05-22 12:48] VITALS: BP 83/53
== END 2017-05-22 14:20 | disposition home or self-care (01) | DRG 222 ==
LOC: EDBD 04:25 → ER 04:30 → TELE 04:31 → DOU IN ICU 05-16 23:17 → TELE-WESTW 05-17 19:29
PROVIDERS: ADMIT Internal Medicine; ATTEND Family Medicine
PROC: 4A023N8 Measurement of Cardiac Sampling and Pressure, Bilateral, Percutaneous Approach (ICD-10-PCS; principal; 2017-05-18)
PROC: B2111ZZ Fluoroscopy of Multiple Coronary Arteries using Low Osmolar Contrast (ICD-10-PCS; 2017-05-18)
PROC: B2151ZZ Fluoroscopy of Left Heart using Low Osmolar Contrast (ICD-10-PCS; 2017-05-18)
PROC: 0JH609Z Insertion of Cardiac Resynchronization Defibrillator Pulse Generator into Chest Subcutaneous Tissue and Fascia, Open Approach (ICD-10-PCS; 2017-05-20)
PROC: 02HL3KZ Insertion of Defibrillator Lead into Left Ventricle, Percutaneous Approach (ICD-10-PCS; 2017-05-20)
PROC: 02H63KZ Insertion of Defibrillator Lead into Right Atrium, Percutaneous Approach (ICD-10-PCS; 2017-05-20)
PROC: 02HK3KZ Insertion of Defibrillator Lead into Right Ventricle, Percutaneous Approach (ICD-10-PCS; 2017-05-20)
DX: I13.0 Hypertensive heart and chronic kidney disease with heart failure and stage 1 through stage 4 chronic kidney disease, or unspecified chronic kidney disease (principal); G93.41 Metabolic encephalopathy; E44.0 Moderate protein-calorie malnutrition; E11.65 Type 2 diabetes mellitus with hyperglycemia; E11.21 Type 2 diabetes mellitus with diabetic nephropathy; I27.20 Pulmonary hypertension, unspecified; I48.91 Unspecified atrial fibrillation; I08.1 Rheumatic disorders of both mitral and tricuspid valves; I25.110 Atherosclerotic heart disease of native coronary artery with unstable angina pectoris; I50.43 Acute on chronic combined systolic (congestive) and diastolic (congestive) heart failure; J98.11 Atelectasis; I42.0 Dilated cardiomyopathy; E11.22 Type 2 diabetes mellitus with diabetic chronic kidney disease; N18.3 Chronic kidney disease, stage 3 (moderate); D63.8 Anemia in other chronic diseases classified elsewhere; E78.5 Hyperlipidemia, unspecified; F41.9 Anxiety disorder, unspecified; I44.7 Left bundle-branch block, unspecified; G47.00 Insomnia, unspecified; I45.9 Conduction disorder, unspecified; I67.2 Cerebral atherosclerosis; M85.80 Other specified disorders of bone density and structure, unspecified site; Z79.01 Long term (current) use of anticoagulants; Z79.4 Long term (current) use of insulin; Z79.899 Other long term (current) drug therapy; Z82.49 Family history of ischemic heart disease and other diseases of the circulatory system; Z83.3 Family history of diabetes mellitus; Z88.0 Allergy status to penicillin; Z79.02 Long term (current) use of antithrombotics/antiplatelets; Z79.82 Long term (current) use of aspirin; Z68.25 Body mass index [BMI] 25.0-25.9, adult
CPT/HCPCS: 33249; 36415; 70551; 71045; 78582; 80053; 80061; 81001; 82550; 82607; 82746; 82962; 83036; 83880; 84443; 84484; 85025; 85379; 85610; 85652; 85730; 86141; 87081; 87086; 93005; 93460; 93886; 93970; 95819; 96374; 96375; 97116; 97163; 97530; 99152; C1769; J1815; J2250

== ENCOUNTER 2017-05-30 08:00 | Inpatient (IN) | payer MEDICARE, MEDICAID ==
[~2017-05-30] VITALS: Ht 165.1 cm; Wt 45.3 kg
[2017-05-30 11:26] LABS: Basophils # (auto) 0.1 uL; Eosinophils # (auto) 0 uL; Eosinophils % (auto) 0.2 % (0.0-7.0); Hematocrit 32.6 % (36.0-46.0); Hemoglobin 10.8 g/dL (12.2-16.2); Lymphocytes # (auto) 1.9 uL; Mean Corpuscular Hemoglobin 30.5 pg (28.0-32.0); Mean Corpuscular Hgb Conc. 33.1 g/dL (32.0-36.0); Mean Corpuscular Volume 92.1 fL (80.0-100.0); Monocytes # (auto) 0.6 uL; Monocytes % (auto) 7.5 % (0.0-12.0); Neutrophils # (auto) 5.2 uL; Neutrophils % (auto) 67.3 % (37.0-80.0); Nucleated Red Blood Cells % 0.1 %; Platelet Count (auto) 205 10^3/uL (140-450); Red Blood Cells 3.54 10^6/uL (4.0-5.20); Red Cell Distribution Width 14.3 % (11.8-14.3); White Blood Cell 7.7 10^3/uL (4.4-10.8)
[2017-05-30] MEDS ORDERED: METF-370 PO (11:33)
[2017-05-30] MEDS ORDERED: CITA-73 PO (11:33)
[2017-05-30] MEDS ORDERED: FURO20TA PO (11:34)
[2017-05-30] MEDS ORDERED: APIX5TAB PO (11:34)
[2017-05-30] MEDS ORDERED: CHOL20007 PO (11:34)
[2017-05-30] MEDS ORDERED: POTA10TA51 PO (11:35)
[2017-05-30] MEDS ORDERED: SACU1TAB PO (11:35)
[2017-05-30] MEDS ORDERED: HYDR-4683 PO (11:36)
[2017-05-30 11:45] LABS: INR 1.08 (0.9-1.15); Partial Thromboplastin Time 26.4 sec (22.64-33.71); Prothrombin Time 11.8 sec (9.37-12.3)
[2017-05-30 12:00] LABS: Albumin 3.4 g/dL (3.4-5.0); BUN/Creatinine Ratio 18.8; Bilirubin, Total 1.1 mg/dL (0.2-1.0); Calcium 9.1 mg/dL (8.5-10.1); Potassium 4.1 mmol/L (3.5-5.1); Total Protein 6.9 g/dL (6.4-8.2)
[2017-05-30] MEDS ORDERED: NITROGLYCERIN 0.4 MG SL TAB SL PRN (12:30)
[2017-05-30] MEDS ORDERED: MORPHINE SULFATE 4 MG/ML SYR/VIAL IV PRN ×2 (12:30)
[2017-05-30] MEDS ORDERED: DEXTROSE (50%) 50ML SYRG IV PRN (12:30)
[2017-05-30] MEDS ORDERED: ONDANSETRON HCL 4 MG/2 ML VIAL IV PRN (12:30)
[2017-05-30] MEDS ORDERED: traMADol HCL 50 MG TAB PO PRN (12:30)
[2017-05-30] MEDS ORDERED: POTASSIUM CHL 10% (20 MEQ/15ML) 15ml ORAL SOLN GT SCH (13:00)
[2017-05-30] MEDS ORDERED: FUROSEMIDE 20 MG/2 ML VIAL IV SCH (13:00)
[2017-05-30 14:20] VITALS: BP 107/61
[2017-05-30] MEDS ORDERED: FUROSEMIDE 20 MG/2 ML VIAL IV ONE (15:15)
[2017-05-30] MEDS: ACCU-CHEK COMFORT CURVE STRIP VI SCH ×2 (16:44→22:13)
[2017-05-30 17:02] VITALS: BP 107/61
[2017-05-30] MEDS ORDERED: PIO30T PO (18:10)
[2017-05-30] MEDS ORDERED: ATOR40TA52 PO (18:10)
[2017-05-30] MEDS: InsuLIN REG 1unit/0.01ml Soln (100units/ml) SC SCH ×2 (18:59→22:00)
[2017-05-30 19:42] LABS: Urine WBC None Seen /hpf (0 - 5)
[2017-05-30 19:51] LABS: Urine Bacteria NONE SEEN /hpf (None Seen); Urine Blood Negative /uL (Negative); Urine Specific Gravity 1.006 (1.001-1.035)
[2017-05-30 21:30] VITALS: BP 137/55
[2017-05-30] MEDS: traZODone HCL 50 MG TAB PO SCH (22:13)
[2017-05-30] MEDS: METOPROLOL TARTRATE 25 MG TAB PO SCH (22:13)
[2017-05-31] MEDS: ACCU-CHEK COMFORT CURVE STRIP VI SCH ×4 (06:15→22:05)
[2017-05-31] MEDS: InsuLIN REG 1unit/0.01ml Soln (100units/ml) SC SCH ×4 (06:15→22:00)
[2017-05-31 06:24] VITALS: BP 105/66
[2017-05-31 07:17] LABS: Basophils # (auto) 0.1 uL; Basophils % (auto) 1.4 % (0.0-2.0); Eosinophils # (auto) 0 uL; Eosinophils % (auto) 0.4 % (0.0-7.0); Hematocrit 33.5 % (36.0-46.0); Lymphocytes # (auto) 1.9 uL; Lymphocytes % (auto) 26.6 % (10.0-50.0); Mean Corpuscular Hemoglobin 30.4 pg (28.0-32.0); Mean Corpuscular Hgb Conc. 32.9 g/dL (32.0-36.0); Mean Corpuscular Volume 92.6 fL (80.0-100.0); Monocytes # (auto) 0.5 uL; Monocytes % (auto) 6.5 % (0.0-12.0); Neutrophils # (auto) 4.6 uL; Neutrophils % (auto) 65.1 % (37.0-80.0); Nucleated Red Blood Cells % 0.3 %; Platelet Count (auto) 210 10^3/uL (140-450); Red Blood Cells 3.61 10^6/uL (4.0-5.20); Red Cell Distribution Width 14.3 % (11.8-14.3); White Blood Cell 7.1 10^3/uL (4.4-10.8)
[2017-05-31 07:32] LABS: BUN/Creatinine Ratio 23.1; Calcium 9.2 mg/dL (8.5-10.1); Potassium 3.8 mmol/L (3.5-5.1)
[2017-05-31 09:00] VITALS: BP 104/64
[2017-05-31] MEDS: CITALOPRAM HYDROBR 20 MG TAB PO SCH (09:56)
[2017-05-31] MEDS: CHOLECALCIFEROL (VITD3) 1,000 UNIT TAB PO SCH (09:56)
[2017-05-31] MEDS: APIXABAN 5 MG TAB PO SCH (09:56)
[2017-05-31] MEDS: SACUBITRIL VALSARTAN PO SCH (09:59)
[2017-05-31] MEDS: METOPROLOL TARTRATE 25 MG TAB PO SCH ×2 (09:59→22:00)
[2017-05-31] MEDS: FUROSEMIDE 20 MG/2 ML VIAL IV SCH (10:00)
[2017-05-31] MEDS ORDERED: PATIENTS OWN MEDICATION (Cholecalciferol (Vitamin D3) 1 TAB) PO SCH (10:00)
[2017-05-31] MEDS ORDERED: PATIENTS OWN MEDICATION (Citalopram Hydrobromide 40 MG) PO SCH (10:00)
[2017-05-31] MEDS ORDERED: PATIENTS OWN MEDICATION (Potassium Chloride (Potassium Chloride Cr) 10 MEQ) PO SCH (10:00)
[2017-05-31] MEDS ORDERED: LISINOPRIL 10 MG TAB PO SCH (10:00)
[2017-05-31] MEDS ORDERED: POTASSIUM CHL 10 Meq TABLET PO SCH (10:00)
[2017-05-31 13:00] VITALS: BP 104/56
[2017-05-31 18:14] VITALS: BP 106/60
[2017-05-31 22:00] VITALS: BP 92/56
[2017-05-31] MEDS: traZODone HCL 50 MG TAB PO SCH (22:05)
[2017-06-01 05:00] VITALS: BP 102/57
[2017-06-01] MEDS: ACCU-CHEK COMFORT CURVE STRIP VI SCH ×4 (06:16→22:00)
[2017-06-01] MEDS: InsuLIN REG 1unit/0.01ml Soln (100units/ml) SC SCH ×4 (06:17→23:05)
[2017-06-01 07:53] LABS: BUN/Creatinine Ratio 24.8; Calcium 8.5 mg/dL (8.5-10.1); Potassium 3.2 mmol/L (3.5-5.1)
[2017-06-01] MEDS: SACUBITRIL VALSARTAN PO SCH (10:00)
[2017-06-01] MEDS: POTASSIUM CHL 20 Meq TABLET PO SCH (11:11)
[2017-06-01] MEDS: CHOLECALCIFEROL (VITD3) 1,000 UNIT TAB PO SCH (11:12)
[2017-06-01] MEDS: APIXABAN 5 MG TAB PO SCH (11:12)
[2017-06-01] MEDS: CITALOPRAM HYDROBR 20 MG TAB PO SCH (11:12)
[2017-06-01] MEDS: FUROSEMIDE 20 MG/2 ML VIAL IV SCH (11:17)
[2017-06-01] MEDS: METOPROLOL TARTRATE 25 MG TAB PO SCH ×2 (11:25→22:00)
[2017-06-01 13:00] VITALS: BP 94/63
[2017-06-01 18:10] VITALS: BP 92/66
[2017-06-01 22:00] VITALS: BP_SYST 94
[2017-06-01] MEDS: traZODone HCL 50 MG TAB PO SCH (22:51)
[2017-06-02 05:14] VITALS: BP 92/23
[2017-06-02] MEDS: InsuLIN REG 1unit/0.01ml Soln (100units/ml) SC SCH ×4 (06:38→22:00)
[2017-06-02] MEDS: ACCU-CHEK COMFORT CURVE STRIP VI SCH ×4 (06:38→22:00)
[2017-06-02 06:42] LABS: Calcium 9.2 mg/dL (8.5-10.1); Potassium 3.2 mmol/L (3.5-5.1)
[2017-06-02 06:45] LABS: BUN/Creatinine Ratio 25.7
[2017-06-02 08:54] VITALS: BP 99/71
[2017-06-02] MEDS: METOPROLOL TARTRATE 25 MG TAB PO SCH ×2 (10:00→22:00)
[2017-06-02] MEDS: FUROSEMIDE 20 MG/2 ML VIAL IV SCH (10:09)
[2017-06-02] MEDS: SACUBITRIL VALSARTAN PO SCH (10:10)
[2017-06-02] MEDS: CITALOPRAM HYDROBR 20 MG TAB PO SCH (10:10)
[2017-06-02] MEDS: APIXABAN 5 MG TAB PO SCH (10:10)
[2017-06-02] MEDS: POTASSIUM CHL 20 Meq TABLET PO SCH (10:10)
[2017-06-02] MEDS: CHOLECALCIFEROL (VITD3) 1,000 UNIT TAB PO SCH (10:10)
[2017-06-02] MEDS ORDERED: POTASSIUM CHL 20 Meq TABLET PO ONE (10:15)
[2017-06-02] MEDS: DIGOXIN (250MCG/ML) 2 ML AMPULE IV SCH ×3 (11:25→22:39)
[2017-06-02 13:03] VITALS: BP 112/71
[2017-06-02] MEDS ORDERED: MAGNESIUM SULFATE 1GM/100ML 100 ML IV ONE (14:15)
[2017-06-02 16:57] VITALS: BP 102/57
[2017-06-02] MEDS: Boost Glucose Control 8 Ounces PO SCH (18:08)
[2017-06-02 22:00] VITALS: BP 91/65
[2017-06-02] MEDS: traZODone HCL 50 MG TAB PO SCH (22:37)
[2017-06-03 05:39] VITALS: BP 106/63
[2017-06-03] MEDS: InsuLIN REG 1unit/0.01ml Soln (100units/ml) SC SCH ×2 (07:00→11:30)
[2017-06-03] MEDS: ACCU-CHEK COMFORT CURVE STRIP VI SCH ×2 (07:00→11:30)
[2017-06-03 07:32] LABS: Basophils # (auto) 0.1 uL; Basophils % (auto) 1.1 % (0.0-2.0); Eosinophils # (auto) 0.1 uL; Eosinophils % (auto) 0.9 % (0.0-7.0); Hematocrit 35.5 % (36.0-46.0); Hemoglobin 11.6 g/dL (12.2-16.2); Lymphocytes # (auto) 1.6 uL; Lymphocytes % (auto) 25.1 % (10.0-50.0); Mean Corpuscular Hemoglobin 30.4 pg (28.0-32.0); Mean Corpuscular Hgb Conc. 32.6 g/dL (32.0-36.0); Mean Corpuscular Volume 93.1 fL (80.0-100.0); Monocytes # (auto) 0.5 uL; Monocytes % (auto) 7.7 % (0.0-12.0); Neutrophils # (auto) 4.2 uL; Neutrophils % (auto) 65.2 % (37.0-80.0); Nucleated Red Blood Cells % 0.1 %; Platelet Count (auto) 236 10^3/uL (140-450); Red Blood Cells 3.81 10^6/uL (4.0-5.20); Red Cell Distribution Width 14.9 % (11.8-14.3); White Blood Cell 6.4 10^3/uL (4.4-10.8)
[2017-06-03 07:42] LABS: Potassium 4.1 mmol/L (3.5-5.1)
[2017-06-03 09:00] VITALS: BP 101/45
[2017-06-03] MEDS: Boost Glucose Control 8 Ounces PO SCH (09:53)
[2017-06-03] MEDS: POTASSIUM CHL 20 Meq TABLET PO SCH (09:53)
[2017-06-03] MEDS: SACUBITRIL VALSARTAN PO SCH (09:53)
[2017-06-03] MEDS: CITALOPRAM HYDROBR 20 MG TAB PO SCH (09:55)
[2017-06-03] MEDS: APIXABAN 5 MG TAB PO SCH (09:56)
[2017-06-03] MEDS: METOPROLOL TARTRATE 25 MG TAB PO SCH (09:57)
[2017-06-03] MEDS: CHOLECALCIFEROL (VITD3) 1,000 UNIT TAB PO SCH (09:57)
[2017-06-03] MEDS ORDERED: DIGOXIN 0.125 MG TAB PO SCH (10:00)
[2017-06-03] MEDS ORDERED: FUROSEMIDE 20 MG TAB PO SCH (10:00)
[2017-06-03] MEDS ORDERED: FUR20T PO (10:06)
[2017-06-03] MEDS ORDERED: DIGO0.124 PO (10:06)
[2017-06-03 13:04] VITALS: BP 96/52
== END 2017-06-03 16:00 | DRG 542 ==
LOC: ER 08:00 → EDBD 08:00 → TELE 08:01 → MERGE 08:01 → TELE-CENTR 14:17
PROVIDERS: ADMIT Internal Medicine; ATTEND Internal Medicine
DX: M84.68XA Pathological fracture in other disease, other site, initial encounter for fracture (principal); I50.23 Acute on chronic systolic (congestive) heart failure; E11.22 Type 2 diabetes mellitus with diabetic chronic kidney disease; I42.9 Cardiomyopathy, unspecified; S02.40DA Maxillary fracture, left side, initial encounter for closed fracture; I13.0 Hypertensive heart and chronic kidney disease with heart failure and stage 1 through stage 4 chronic kidney disease, or unspecified chronic kidney disease; N18.3 Chronic kidney disease, stage 3 (moderate); D63.8 Anemia in other chronic diseases classified elsewhere; E78.00 Pure hypercholesterolemia, unspecified; E78.5 Hyperlipidemia, unspecified; F03.90 Unspecified dementia, unspecified severity, without behavioral disturbance, psychotic disturbance, mood disturbance, and anxiety; F41.9 Anxiety disorder, unspecified; I48.91 Unspecified atrial fibrillation; Z79.01 Long term (current) use of anticoagulants; Z87.11 Personal history of peptic ulcer disease; Z95.810 Presence of automatic (implantable) cardiac defibrillator; Z88.0 Allergy status to penicillin; Z90.49 Acquired absence of other specified parts of digestive tract
CPT/HCPCS: 36415; 70450; 70486; 71045; 74176; 80048; 80053; 81001; 82962; 83735; 83880; 84484; 85025; 85610; 85730; 87081; 93005; 96374; 96375; J1815

== ENCOUNTER 2017-06-18 12:26 | Inpatient (IN) | payer MEDICARE, MEDICAID ==
[~2017-06-18] VITALS: Ht 154.9 cm; Wt 50.7 kg
[~2017-06-18 12:26] MED LIST changes: +APIX5TAB PO; +CHOL20007 PO; +CITA-73 PO; +DIGO0.124 PO; +FUR20T PO; +FURO20TA PO; +HYDR-4683 PO; +METF-370 PO; +POTA10TA51 PO
[2017-06-18] MEDS ORDERED: SODIUM CHLORIDE 0.9% 1,000 ML IVB ONE (12:49)
[2017-06-18 13:20] LABS: Basophils # (auto) 0 uL; Eosinophils # (auto) 0 uL; Hematocrit 29.9 % (36.0-46.0); Hemoglobin 9.9 g/dL (12.2-16.2); Lymphocytes # (auto) 0.5 uL; Lymphocytes % (auto) 13.4 % (10.0-50.0); Mean Corpuscular Hemoglobin 29.9 pg (28.0-32.0); Mean Corpuscular Volume 90.6 fL (80.0-100.0); Monocytes # (auto) 0.2 uL; Monocytes % (auto) 5.8 % (0.0-12.0); Neutrophils # (auto) 2.9 uL; Neutrophils % (auto) 79.8 % (37.0-80.0); Nucleated Red Blood Cells % 0.1 %; Platelet Count (auto) 131 10^3/uL (140-450); Red Cell Distribution Width 15.3 % (11.8-14.3); White Blood Cell 3.6 10^3/uL (4.4-10.8)
[2017-06-18 13:37] LABS: INR 1.2 (0.9-1.15); Partial Thromboplastin Time 25.4 sec (22.64-33.71); Prothrombin Time 13.1 sec (9.37-12.3)
[2017-06-18 13:45] LABS: Urine Bacteria MOD /hpf (None Seen); Urine Blood Negative /uL (Negative); Urine Hyaline Cast FEW /lpf (0 - 2); Urine Mucus FEW (None Seen); Urine Specific Gravity 1.023 (1.001-1.035); Urine WBC 4 /hpf (0 - 5)
[2017-06-18 13:48] LABS: Albumin 3.1 g/dL (3.4-5.0); BUN/Creatinine Ratio 22.2; Bilirubin, Total 1.5 mg/dL (0.2-1.0); Calcium 8.4 mg/dL (8.5-10.1); Magnesium 2.1 mg/dL (1.6-2.6); Potassium 4.3 mmol/L (3.5-5.1); Total Protein 6.6 g/dL (6.4-8.2)
[2017-06-18] MEDS ORDERED: cefTRIAXone 1GM/10ml IVPUSH 10 ML IV ONE (15:00)
[2017-06-18] MEDS ORDERED: ASPirin-EC 81 mg tab PO ONE (15:00)
[2017-06-18] MEDS ORDERED: MORPHINE SULFATE 4 MG/ML SYR/VIAL IV PRN (15:15)
[2017-06-18] MEDS ORDERED: PROMETHAZINE HCL 25 MG/ML 1ML IV PRN (15:15)
[2017-06-18] MEDS ORDERED: ACETAMINOPHEN 500 MG TAB PO PRN (15:15)
[2017-06-18] MEDS ORDERED: TEMAZEPAM 15 MG CAP PO PRN (15:15)
[2017-06-18] MEDS ORDERED: DEXTROSE (50%) 50ML SYRG IV PRN (15:15)
[2017-06-18] MEDS ORDERED: NITROGLYCERIN 0.4 MG SL TAB SL PRN (15:15)
[2017-06-18] MEDS ORDERED: LORazepam 0.5 MG TAB PO PRN (15:15)
[2017-06-18] MEDS ORDERED: ERTAPENEM SOD INJ 1 GM in SODIUM CHL 0.9% 50 ML IV ONE (15:15)
[2017-06-18] MEDS: SODIUM CHLORIDE 0.9% 1,000 ML IV SCH (15:53)
[2017-06-18] MEDS: InsuLIN REG 1unit/0.01ml Soln (100units/ml) SC SCH ×2 (17:10→22:00)
[2017-06-18] MEDS: ACCU-CHEK COMFORT CURVE STRIP VI SCH ×2 (17:10→22:00)
[2017-06-18] MEDS ORDERED: ATORVASTATIN 20 MG TAB PO SCH (18:00)
[2017-06-18] MEDS: MORPHINE SULFATE 4 MG/ML SYR/VIAL IV PRN (18:43)
[2017-06-18] MEDS ORDERED: LORazepam 2MG/ML-1ML VIAL ONE (18:56)
[2017-06-18] MEDS: LORazepam 2MG/ML-1ML VIAL IV PRN (19:05)
[2017-06-19] MEDS: LORazepam 2MG/ML-1ML VIAL IV PRN ×2 (01:20→20:13)
[2017-06-19] MEDS: SODIUM CHLORIDE 0.9% 1,000 ML IV SCH (04:52)
[2017-06-19] MEDS: MORPHINE SULFATE 4 MG/ML SYR/VIAL IV PRN (04:55)
[2017-06-19 06:01] LABS: Basophils # (auto) 0 uL; Basophils % (auto) 0.7 % (0.0-2.0); Eosinophils # (auto) 0 uL; Eosinophils % (auto) 0.1 % (0.0-7.0); Hematocrit 31.6 % (36.0-46.0); Hemoglobin 10.2 g/dL (12.2-16.2); Lymphocytes # (auto) 0.3 uL; Lymphocytes % (auto) 6.6 % (10.0-50.0); Mean Corpuscular Hemoglobin 29.7 pg (28.0-32.0); Mean Corpuscular Hgb Conc. 32.4 g/dL (32.0-36.0); Mean Corpuscular Volume 91.5 fL (80.0-100.0); Monocytes # (auto) 0.3 uL; Monocytes % (auto) 5.6 % (0.0-12.0); Neutrophils # (auto) 4.3 uL; Nucleated Red Blood Cells % 0.2 %; Platelet Count (auto) 132 10^3/uL (140-450); Red Blood Cells 3.45 10^6/uL (4.0-5.20); Red Cell Distribution Width 15.7 % (11.8-14.3); White Blood Cell 4.9 10^3/uL (4.4-10.8)
[2017-06-19 06:32] LABS: Albumin 2.9 g/dL (3.4-5.0); BUN/Creatinine Ratio 24.7; Bilirubin, Total 1.4 mg/dL (0.2-1.0); Potassium 4.5 mmol/L (3.5-5.1); Total Protein 6.2 g/dL (6.4-8.2)
[2017-06-19] MEDS: InsuLIN REG 1unit/0.01ml Soln (100units/ml) SC SCH ×4 (07:11→21:37)
[2017-06-19] MEDS: ACCU-CHEK COMFORT CURVE STRIP VI SCH ×4 (07:11→21:37)
[2017-06-19] MEDS: DIGOXIN 0.125 MG TAB PO SCH (09:41)
[2017-06-19] MEDS ORDERED: DIGOXIN (250MCG/ML) 2 ML AMPULE IV ONE (09:45)
[2017-06-19] MEDS: ASPirin 81 mg TAB PO SCH (10:00)
[2017-06-19] MEDS: PANTOPRAZOLE 40 MG TAB PO SCH (10:00)
[2017-06-19] MEDS: APIXABAN 5 MG TAB PO SCH (10:00)
[2017-06-19] MEDS: CLOPIDOGREL BISULFATE 75 MG TAB PO SCH (10:00)
[2017-06-19] MEDS: SACUBITRIL VALSARTAN PO SCH (10:00)
[2017-06-19] MEDS: CITALOPRAM HYDROBR 20 MG TAB PO SCH (10:00)
[2017-06-19] MEDS: CHOLECALCIFEROL (VITD3) 1,000 UNIT TAB PO SCH (10:00)
[2017-06-19] MEDS: ERTAPENEM SOD INJ 1 GM in SODIUM CHL 0.9% 50 ML IV SCH (10:04)
[2017-06-19] MEDS ORDERED: SODIUM CHLORIDE 0.9% 1,000 ML IV ONE (11:15)
[2017-06-19] MEDS ORDERED: METO50TA7 PO (11:21)
[2017-06-19] MEDS ORDERED: MOMLQ PO (11:25)
[2017-06-19] MEDS ORDERED: TRAM-297 PO (11:25)
[2017-06-19] MEDS ORDERED: HYDR-4683 PO (11:25)
[2017-06-19 14:04] VITALS: BP 109/46
[2017-06-19 15:50] VITALS: BP 113/61
[2017-06-19 16:24] VITALS: BP 113/61
[2017-06-19] MEDS: ATORVASTATIN 20 MG TAB PO SCH (21:24)
[2017-06-19 23:55] VITALS: BP 118/92
[2017-06-20] VITALS (8 sets, daily range): BP systolic 108–125; BP diastolic 58–73
[2017-06-20] MEDS ORDERED: KETOROLAC TROMETH 30 MG/ML 1ML VIAL IV ONE (02:15)
[2017-06-20 06:28] LABS: Basophils # (auto) 0 uL; Basophils % (auto) 0.6 % (0.0-2.0); Eosinophils # (auto) 0 uL; Hematocrit 36.3 % (36.0-46.0); Hemoglobin 11.5 g/dL (12.2-16.2); Lymphocytes # (auto) 0.6 uL; Lymphocytes % (auto) 11.3 % (10.0-50.0); Mean Corpuscular Hemoglobin 29.3 pg (28.0-32.0); Mean Corpuscular Hgb Conc. 31.7 g/dL (32.0-36.0); Mean Corpuscular Volume 92.5 fL (80.0-100.0); Monocytes # (auto) 0.4 uL; Monocytes % (auto) 7.7 % (0.0-12.0); Neutrophils # (auto) 4.1 uL; Neutrophils % (auto) 80.4 % (37.0-80.0); Nucleated Red Blood Cells % 0.8 %; Platelet Count (auto) 153 10^3/uL (140-450); Red Blood Cells 3.92 10^6/uL (4.0-5.20); Red Cell Distribution Width 16.1 % (11.8-14.3); White Blood Cell 5.1 10^3/uL (4.4-10.8)
[2017-06-20 06:45] LABS: Potassium 5.3 mmol/L (3.5-5.1)
[2017-06-20 06:51] LABS: Albumin 3.2 g/dL (3.4-5.0); BUN/Creatinine Ratio 27.6; Bilirubin, Total 1.6 mg/dL (0.2-1.0); Calcium 8.3 mg/dL (8.5-10.1); Total Protein 6.6 g/dL (6.4-8.2)
[2017-06-20] MEDS: InsuLIN REG 1unit/0.01ml Soln (100units/ml) SC SCH ×5 (07:00→21:53)
[2017-06-20] MEDS: ACCU-CHEK COMFORT CURVE STRIP VI SCH ×4 (07:01→21:37)
[2017-06-20] MEDS ORDERED: SODIUM CHLORIDE 0.9% 1,000 ML IV ONE ×3 (09:30→10:30)
[2017-06-20] MEDS: ERTAPENEM SOD INJ 1 GM in SODIUM CHL 0.9% 50 ML IV SCH (10:00)
[2017-06-20] MEDS: PANTOPRAZOLE 40 MG TAB PO SCH (10:00)
[2017-06-20] MEDS: CITALOPRAM HYDROBR 20 MG TAB PO SCH (10:00)
[2017-06-20] MEDS: SACUBITRIL VALSARTAN PO SCH (10:00)
[2017-06-20] MEDS: CHOLECALCIFEROL (VITD3) 1,000 UNIT TAB PO SCH (10:00)
[2017-06-20] MEDS: DIGOXIN 0.125 MG TAB PO SCH (10:00)
[2017-06-20] MEDS ORDERED: SODIUM BICARBONATE 650 MG TAB PO ONE (12:45)
[2017-06-20] MEDS: HYDROcodone-ACET 5/325MG TAB PO PRN ×2 (15:31→21:37)
[2017-06-20] MEDS: APIXABAN 5 MG TAB PO SCH (15:32)
[2017-06-20] MEDS: ASPirin 81 mg TAB PO SCH (15:32)
[2017-06-20] MEDS: CLOPIDOGREL BISULFATE 75 MG TAB PO SCH (15:32)
[2017-06-20] MEDS ORDERED: LEVOFLOXACIN 500MG 100 ML IV ONE ×2 (17:00)
[2017-06-20] MEDS: ATORVASTATIN 20 MG TAB PO SCH (21:36)
[2017-06-20] MEDS: SODIUM BICARBONATE 650 MG TAB PO SCH (21:36)
[2017-06-21 05:00] VITALS: BP 108/67
[2017-06-21 05:54] LABS: Basophils # (auto) 0 uL; Basophils % (auto) 0.4 % (0.0-2.0); Eosinophils # (auto) 0 uL; Hematocrit 34.2 % (36.0-46.0); Hemoglobin 10.9 g/dL (12.2-16.2); Lymphocytes % (auto) 14.4 % (10.0-50.0); Mean Corpuscular Hemoglobin 29.3 pg (28.0-32.0); Mean Corpuscular Hgb Conc. 31.9 g/dL (32.0-36.0); Monocytes # (auto) 0.7 uL; Monocytes % (auto) 11.2 % (0.0-12.0); Neutrophils # (auto) 4.9 uL; Nucleated Red Blood Cells % 0.6 %; Platelet Count (auto) 150 10^3/uL (140-450); Red Blood Cells 3.71 10^6/uL (4.0-5.20); Red Cell Distribution Width 16.3 % (11.8-14.3); White Blood Cell 6.6 10^3/uL (4.4-10.8)
[2017-06-21 06:17] LABS: Potassium 4.9 mmol/L (3.5-5.1)
[2017-06-21 06:22] LABS: Albumin 3.1 g/dL (3.4-5.0); BUN/Creatinine Ratio 31.9; Bilirubin, Total 1.9 mg/dL (0.2-1.0); Calcium 8.2 mg/dL (8.5-10.1); Total Protein 6.3 g/dL (6.4-8.2)
[2017-06-21] MEDS: InsuLIN REG 1unit/0.01ml Soln (100units/ml) SC SCH ×3 (06:47→17:00)
[2017-06-21] MEDS: ACCU-CHEK COMFORT CURVE STRIP VI SCH ×3 (06:47→17:00)
[2017-06-21 08:00] VITALS: BP 118/66
[2017-06-21 08:37] VITALS: BP 118/66
[2017-06-21] MEDS: SODIUM BICARBONATE 650 MG TAB PO SCH (09:02)
[2017-06-21] MEDS: PANTOPRAZOLE 40 MG TAB PO SCH (09:02)
[2017-06-21] MEDS: APIXABAN 5 MG TAB PO SCH (09:02)
[2017-06-21] MEDS: CITALOPRAM HYDROBR 20 MG TAB PO SCH (09:03)
[2017-06-21] MEDS: CHOLECALCIFEROL (VITD3) 1,000 UNIT TAB PO SCH (09:03)
[2017-06-21] MEDS: DIGOXIN 0.125 MG TAB PO SCH (09:04)
[2017-06-21] MEDS: HYDROcodone-ACET 5/325MG TAB PO PRN ×2 (09:04→15:07)
[2017-06-21] MEDS ORDERED: METOPROLOL SUCCINATE XL 50 MG TAB PO SCH (10:00)
[2017-06-21] MEDS ORDERED: LEVOFLOXACIN 500MG 100 ML IV SCH (10:00)
[2017-06-21] MEDS: SACUBITRIL VALSARTAN PO SCH (10:00)
[2017-06-21 10:53] LABS: Urine Bacteria NONE SEEN /hpf (None Seen); Urine Blood 1+ /uL (Negative); Urine Mucus FEW (None Seen); Urine Specific Gravity 1.023 (1.001-1.035); Urine WBC 29 /hpf (0 - 5)
[2017-06-21 11:13] LABS: Protein, Urine 225.8 mg/dL (0.0-11.9)
[2017-06-21 13:00] VITALS: BP 108/68
[2017-06-21] MEDS ORDERED: DOBUTamine 1000MCG/ML 250 ML IV SCH (13:15)
[2017-06-21] MEDS ORDERED: LEVOFLOXACIN 250MG 50 ML IV SCH (15:00)
[2017-06-21 17:00] VITALS: BP 110/66
[2017-06-21 17:32] VITALS: BP 118/66
[2017-06-22] MEDS ORDERED: LEVOFLOXACIN 250MG 50 ML IV SCH (17:00)
== END 2017-06-21 18:25 | disposition hospice, home (50) | DRG 871 ==
LOC: ER 12:26 → EDBD 12:26 → TELE 12:27 → DOU IN ICU 06-19 13:55 → TELE-CENTR 06-19 23:49
PROVIDERS: ADMIT Internal Medicine; ATTEND Family Medicine
DX: A41.9 Sepsis, unspecified organism (principal); E43 Unspecified severe protein-calorie malnutrition; G93.41 Metabolic encephalopathy; N17.9 Acute kidney failure, unspecified; D61.818 Other pancytopenia; D69.6 Thrombocytopenia, unspecified; E11.21 Type 2 diabetes mellitus with diabetic nephropathy; E11.22 Type 2 diabetes mellitus with diabetic chronic kidney disease; I13.0 Hypertensive heart and chronic kidney disease with heart failure and stage 1 through stage 4 chronic kidney disease, or unspecified chronic kidney disease; I50.20 Unspecified systolic (congestive) heart failure; I42.0 Dilated cardiomyopathy; N39.0 Urinary tract infection, site not specified; Z66 Do not resuscitate; E87.5 Hyperkalemia; D63.8 Anemia in other chronic diseases classified elsewhere; E78.5 Hyperlipidemia, unspecified; E86.0 Dehydration; E86.1 Hypovolemia; G30.9 Alzheimer's disease, unspecified; F02.80 Dementia in other diseases classified elsewhere, unspecified severity, without behavioral disturbance, psychotic disturbance, mood disturbance, and anxiety; I27.20 Pulmonary hypertension, unspecified; I48.91 Unspecified atrial fibrillation; K57.30 Diverticulosis of large intestine without perforation or abscess without bleeding; N18.3 Chronic kidney disease, stage 3 (moderate); R62.7 Adult failure to thrive; Z51.5 Encounter for palliative care; R26.9 Unspecified abnormalities of gait and mobility; E78.00 Pure hypercholesterolemia, unspecified; B96.20 Unspecified Escherichia coli [E. coli] as the cause of diseases classified elsewhere; J44.9 Chronic obstructive pulmonary disease, unspecified; I25.10 Atherosclerotic heart disease of native coronary artery without angina pectoris; F32.9 Major depressive disorder, single episode, unspecified; F41.9 Anxiety disorder, unspecified; Z79.01 Long term (current) use of anticoagulants; Z82.49 Family history of ischemic heart disease and other diseases of the circulatory system; Z83.3 Family history of diabetes mellitus; Z95.810 Presence of automatic (implantable) cardiac defibrillator; Z79.899 Other long term (current) drug therapy; Z88.0 Allergy status to penicillin
CPT/HCPCS: 36415; 36600; 51702; 70450; 71045; 74176; 76705; 80053; 80061; 80320; 81001; 82550; 82570; 82805; 82962; 83036; 83605; 83735; 83880; 84156; 84443; 84484; 85025; 85610; 85730; 86141; 87040; 87081; 87086; 87088; 87186; 93005; 96361; 96374; 97163; J1335; J1815; J1885; J1956